=== PATIENT | female | born 1945 | race Caucasian/White ===

== ENCOUNTER 2017-06-19 07:50 | Emergency (ER) | payer MEDICARE, BC ==
[2017-06-19 07:55] VITALS: RESP 18
[2017-06-19] MEDS ORDERED: APAP/HYDROCODONE 325/7.5 TAB PO PRN (08:49)
[2017-06-19] MEDS ORDERED: TDAP VACCINE 0.5 ML SUS IM ONE ×2 (08:51→09:34)
[2017-06-19 10:25] VITALS: TEMP 98.7
[2017-06-19 10:42] VITALS: BP 144/89; PULSE 78; O2SAT 99
== END 2017-06-19 11:10 | disposition home or self-care (01) | DRG 563 ==
LOC: EDBD → ED 07:50 → MERGE 07:50 → ED 11:10
DX: S82.892A Other fracture of left lower leg, initial encounter for closed fracture (principal)
CPT/HCPCS: 73610; 73620; 90715; 99284

== ENCOUNTER 2017-06-19 14:00 | Outpatient (CLI) | payer MEDICARE, BC ==
[~2017-06-19 14:00] MED LIST: FENTANYL 100MCG/2ML SOL ONE; LIDOCAINE HCL 1% MPF SOL ONE; PROPOFOL 10 MG/ML EMU IV ONE; SUCCINYLCHOLINE CHLORIDE 20 MG/ML SOL IV ONE
[2017-06-19] MEDS ORDERED: ONDANSETRON HCL 4 MG/2 ML SOL ONE (14:02)
[2017-06-19] MEDS ORDERED: CEFAZOLIN SODIUM 1 GM PDS ONE ×2 (14:02→22:36)
[2017-06-19] MEDS ORDERED: METOCLOPRAMIDE HYDROCHLORIDE 5 MG/ML SOL ONE (14:02)
[2017-06-19] MEDS ORDERED: PROPOFOL 10 MG/ML EMU IV ONE (14:31)
[2017-06-19] MEDS ORDERED: HYDROMORPHONE 1 MG/ML SYRINGE ONE (14:35)
[2017-06-19] MEDS ORDERED: DEXAMETHASONE 20 MG/5 ML (4 MG/ML SOL) ONE (14:38)
[2017-06-19] MEDS: BUPIVACAINE HCL 0.25% MPF 10 ML SOL INFIL ONE ×2 (15:39→15:46)
[2017-06-19] MEDS ORDERED: KETOROLAC TROMETHAMINE 30 MG/ML SOL ONE (15:49)
[2017-06-19] MEDS ORDERED: APAP/OXYCODONE 325/5 TAB PO PRN (18:16)
[2017-06-19] MEDS: CEFAZOLIN (PREMIX) 1 GM 1 GM/50 ML SOL IV SCH (22:46)
[2017-06-20] MEDS ORDERED: CEFAZOLIN SODIUM 1 GM PDS ONE (06:00)
[2017-06-20] MEDS: CEFAZOLIN (PREMIX) 1 GM 1 GM/50 ML SOL IV SCH (06:25)
[2017-06-20 07:40] VITALS: BP 148/56; PULSE 76; RESP 20; TEMP 98.1; O2SAT 97
== END 2017-06-20 14:00 | disposition home or self-care (01) | DRG 563 ==
LOC: EDBD → CONVCARE 14:00 → ACUTE CARE 17:35 → CONVCARE 06-20 14:00
PROVIDERS: ATTEND Orthopaedic Surgery
PROC: F01ZBZZ Bed Mobility Assessment (ICD-10-PCS; principal; 2017-06-20)
PROC: F01ZDFZ Gait and/or Balance Assessment using Assistive, Adaptive, Supportive or Protective Equipment (ICD-10-PCS; 2017-06-20)
PROC: F01ZCZZ Transfer Assessment (ICD-10-PCS; 2017-06-20)
DX: S82.842A Displaced bimalleolar fracture of left lower leg, initial encounter for closed fracture (principal); E11.9 Type 2 diabetes mellitus without complications; I10 Essential (primary) hypertension; W00.0XXA Fall on same level due to ice and snow, initial encounter
CPT/HCPCS: 73600; 73610; 73620; 76000; 90715; 99284; J0330; J0690; J1100; J1885; J2405; J2765; J3010; J1170; J2001; J2704

== ENCOUNTER 2017-07-03 09:47 | Outpatient (CLI) | payer MEDICARE, BC ==
[2017-06-20 07:40] VITALS: O2SAT 97
== END 2017-07-03 09:48 | disposition home or self-care (01) | DRG 561 ==
LOC: CONVCARE 09:47
PROVIDERS: ATTEND Orthopaedic Surgery
DX: S82.842D Displaced bimalleolar fracture of left lower leg, subsequent encounter for closed fracture with routine healing (principal)
CPT/HCPCS: 73610

== ENCOUNTER 2017-08-07 08:59 | Outpatient (CLI) | payer MEDICARE, BC ==
[2017-06-20 07:40] VITALS: O2SAT 97
== END 2017-08-07 09:00 | disposition home or self-care (01) | DRG 561 ==
LOC: CONVCARE 08:59
PROVIDERS: ATTEND Orthopaedic Surgery
DX: S82.842D Displaced bimalleolar fracture of left lower leg, subsequent encounter for closed fracture with routine healing (principal)
CPT/HCPCS: 73610